=== PATIENT | female | born 1975 | race Asian ===

== ENCOUNTER → 2024-03-27 06:20 | Day surgery (SDC) | payer BC, SELFPAY ==
[2024-03-27 09:53] LABS: Glucose - Point of Care 99 mg/dl (70-99)
== END ==
LOC: GI 06:20
PROVIDERS: ATTENDING PHYSICIAN Internal Medicine Gastroenterology
DX: Z12.11 Encounter for screening for malignant neoplasm of colon (principal); D12.2 Benign neoplasm of ascending colon; K63.5 Polyp of colon; K52.9 Noninfective gastroenteritis and colitis, unspecified; K63.89 Other specified diseases of intestine; D17.5 Benign lipomatous neoplasm of intra-abdominal organs; K22.89 Other specified disease of esophagus; K31.7 Polyp of stomach and duodenum; R12 Heartburn
CPT/HCPCS: 45385; 45380; 43239; 88305; 82962